=== PATIENT | male | born 1965 | race African-American/Black ===

== ENCOUNTER 2018-09-15 20:26 | Inpatient (IN) | payer MEDICAID ==
[~2018-09-15] VITALS: Ht 193 cm; Wt 103.4 kg
[2018-09-15 23:45] LABS: HEMATOCRIT. 29.5 % (42.0-52.0); HEMOGLOBIN. 9.1 g/dL (14.0-18.0); MEAN CORPUSCULAR HEMOGLOBIN 24.1 pg (28.0-32.0); MEAN CORPUSCULAR VOLUME 78.2 fL (80.0-94.0); MEAN PLATELET VOLUME 8.6 fl (7.4-10.4); PLATELET 142 x1000/uL (130-400); RED BLOOD CELL COUNT 3.77 mill/uL (4.7-6.1); RED CELL DISTRIBUTION WIDTH 18.5 % (11.6-14.6)
[2018-09-15 23:51] LABS: CHLORIDE 107 mEq/L (98-107)
[2018-09-16] MEDS ORDERED: ONDANSETRON HCL 4MG/2ML INJ IV ONE
[2018-09-16] MEDS ORDERED: ASPIRIN 325MG TABLET PO ONE
[2018-09-16] MEDS ORDERED: MORPHINE SULFATE 4 MG/ML CPJ (NOT FOR IM USE) IV ONE
[2018-09-16] MEDS ORDERED: FUROSEMIDE 40MG/4ML VIAL IVP ONE (01:00)
[2018-09-16] MEDS ORDERED: MAGNESIUM/ALUMINUM HYDROXIDE/SIMETHICONE 30ML UDC PO PRN (02:15)
[2018-09-16] MEDS ORDERED: GUAIFENESIN 200MG/10ML SUGAR FREE UDC PO PRN (02:15)
[2018-09-16] MEDS ORDERED: CLONIDINE 0.1MG TABLET PO PRN (02:15)
[2018-09-16] MEDS ORDERED: DOCUSATE SODIUM 100MG CAPSULE PO PRN (02:15)
[2018-09-16] MEDS ORDERED: ONDANSETRON HCL 4MG/2ML INJ IV PRN (02:15)
[2018-09-16] MEDS ORDERED: ACETAMINOPHEN 325MG TABLET PO PRN (02:15)
[2018-09-16] MEDS ORDERED: IPRATROPIUM/ALBUTEROL 0.5-3(2.5)MG/3ML NEB INH PRN (02:15)
[2018-09-16 02:59] LABS: NUCLEATED RED BLOOD CELLS 1 /100 WBC; PLATELET ESTIMATE NORMAL
[2018-09-16 04:00] VITALS: BP 115/84
[2018-09-16 04:15] VITALS: BP 115/84
[2018-09-16] MEDS ORDERED: DEXTROSE 50% WATER 50ML SYRINGE IV PRN (06:15)
[2018-09-16] MEDS: BLOOD SUGAR DIAGNOSTIC STRIP TEST SCH ×4 (07:01→20:48)
[2018-09-16] MEDS: INSULIN LISPRO 100 UNITS/ML SUBCUT SCH ×4 (07:02→21:00)
[2018-09-16] MEDS: ENOXAPARIN 40MG/0.4ML SYR SUBCUT SCH (07:17)
[2018-09-16 08:00] VITALS: BP 99/78
[2018-09-16] MEDS: LISINOPRIL 10MG TABLET PO SCH (08:50)
[2018-09-16] MEDS: AMLODIPINE 10MG TABLET PO SCH (08:50)
[2018-09-16] MEDS: FUROSEMIDE 40MG/4ML VIAL IV SCH (08:51)
[2018-09-16 09:38] LABS: CREATINE KINASE 29 IU/L (39-308)
[2018-09-16] MEDS: HYDROCODONE/ACETAMINOPHEN 5/325MG TABLET PO PRN ×3 (09:43→23:16)
[2018-09-16 12:00] VITALS: BP 116/79
[2018-09-16] MEDS ORDERED: GABA-531 MT (14:30)
[2018-09-16] MEDS ORDERED: ATOR-2 MT (14:30)
[2018-09-16] MEDS ORDERED: METO-396 MT (14:30)
[2018-09-16] MEDS ORDERED: ESOM40CA MT (14:30)
[2018-09-16] MEDS ORDERED: ASPI-1160 MT (14:30)
[2018-09-16] MEDS ORDERED: LISI2.5T47 MT (14:30)
[2018-09-16 16:18] VITALS: BP 114/76
[2018-09-16 18:05] LABS: CREATINE KINASE 29 IU/L (39-308)
[2018-09-16 18:14] LABS: T4 FREE 1.12 ng/dL (0.76-1.46)
[2018-09-16 19:09] LABS: CLARITY URINE CLEAR (CLEAR); COLOR URINE YELLOW (YELLOW); KETONES URINE NEGATIVE (NEGATIVE); LEUKOCYTE ESTERASE URINE NEGATIVE (NEGATIVE); NITRITE URINE NEGATIVE (NEGATIVE); OCCULT BLOOD URINE NEGATIVE (NEGATIVE); PH URINE 5.5 (4.5-8.0); PROTEIN URINE NEGATIVE (NEGATIVE); SPECIFIC GRAVITY URINE 1.016 (1.005-1.030)
[2018-09-16 19:21] LABS: *AMPHETAMINES SCREEN URINE NEGATIVE (NEGATIVE)
[2018-09-16 19:22] LABS: *BARBITURATES SCREEN URINE NEGATIVE (NEGATIVE); *BENZODIAZEPINES SCREEN URINE NEGATIVE (NEGATIVE); *COCAINE SCREEN URINE NEGATIVE (NEGATIVE); METHADONE URINE SCREEN NEGATIVE (NEGATIVE); OPIATES URINE SCREEN PRESUMTIVE POSITIVE (NEGATIVE); PHENCYCLIDINE URINE SCREEN NEGATIVE (NEGATIVE)
[2018-09-16 19:23] LABS: CANNABINOID URINE SCREEN PRESUMTIVE POSITIVE (NEGATIVE)
[2018-09-16 20:00] VITALS: BP_SYST 111; BP_SYST 160; BP_DIAS 78; BP_DIAS 84
[2018-09-16] MEDS: BUDESONIDE 0.5MG/2ML NEB HHN SCH (20:21)
[2018-09-16] MEDS: IPRATROPIUM/ALBUTEROL 0.5-3(2.5)MG/3ML NEB HHN SCH ×2 (20:21→23:59)
[2018-09-16] MEDS: LORATADINE 10MG TABLET PO SCH (20:47)
[2018-09-16] MEDS: FLUTICASONE PROPIONATE 50MCG/SPRAY BOTTLE BOTHNSTRLS SCH (20:48)
[2018-09-17] VITALS: BP 122/90
[2018-09-17 04:00] VITALS: BP 112/83
[2018-09-17] MEDS: IPRATROPIUM/ALBUTEROL 0.5-3(2.5)MG/3ML NEB HHN SCH ×3 (04:00→20:14)
[2018-09-17] MEDS: BLOOD SUGAR DIAGNOSTIC STRIP TEST SCH ×4 (06:09→21:01)
[2018-09-17] MEDS: ENOXAPARIN 40MG/0.4ML SYR SUBCUT SCH (06:11)
[2018-09-17] MEDS: INSULIN LISPRO 100 UNITS/ML SUBCUT SCH ×4 (06:20→21:00)
[2018-09-17 07:29] LABS: CHLORIDE 103 mEq/L (98-107)
[2018-09-17 07:41] LABS: HDL CHOLESTEROL 29 mg/dL (40-59)
[2018-09-17 07:44] LABS: LDL CHOLESTEROL 8 mg/dL (5-100)
[2018-09-17 07:45] LABS: CREATINE KINASE MB FRACTION < 1.0 ng/mL (0.5-3.6)
[2018-09-17 08:00] VITALS: BP 123/90
[2018-09-17] MEDS: LISINOPRIL 10MG TABLET PO SCH (08:44)
[2018-09-17] MEDS: AMLODIPINE 10MG TABLET PO SCH (08:44)
[2018-09-17] MEDS: FUROSEMIDE 40MG/4ML VIAL IV SCH (08:44)
[2018-09-17] MEDS: FLUTICASONE PROPIONATE 50MCG/SPRAY BOTTLE BOTHNSTRLS SCH ×2 (08:44→21:46)
[2018-09-17] MEDS: HYDROCODONE/ACETAMINOPHEN 5/325MG TABLET PO PRN ×2 (10:47→22:18)
[2018-09-17 12:00] VITALS: BP 123/93
[2018-09-17] MEDS: MEGESTROL ACETATE 400 MG/10 ML UDC PO SCH (15:07)
[2018-09-17] MEDS: BUDESONIDE 0.5MG/2ML NEB HHN SCH ×2 (15:55→20:13)
[2018-09-17 16:00] VITALS: BP 115/80
[2018-09-17 20:00] VITALS: BP 107/72
[2018-09-17] MEDS: CARVEDILOL 3.125 MG TABLET PO SCH (21:00)
[2018-09-17] MEDS: LORATADINE 10MG TABLET PO SCH (21:46)
[2018-09-18] VITALS: BP 110/74
[2018-09-18] MEDS: IPRATROPIUM/ALBUTEROL 0.5-3(2.5)MG/3ML NEB HHN SCH ×3 (00:53→07:32)
[2018-09-18 04:00] VITALS: BP 105/69
[2018-09-18] MEDS: INSULIN LISPRO 100 UNITS/ML SUBCUT SCH ×2 (06:18→11:41)
[2018-09-18] MEDS: BLOOD SUGAR DIAGNOSTIC STRIP TEST SCH ×2 (06:18→11:41)
[2018-09-18] MEDS: ENOXAPARIN 40MG/0.4ML SYR SUBCUT SCH (06:47)
[2018-09-18] MEDS: BUDESONIDE 0.5MG/2ML NEB HHN SCH (07:33)
[2018-09-18 08:00] VITALS: BP 112/76
[2018-09-18] MEDS: AMLODIPINE 10MG TABLET PO SCH (09:44)
[2018-09-18] MEDS: CARVEDILOL 3.125 MG TABLET PO SCH (09:44)
[2018-09-18] MEDS: FLUTICASONE PROPIONATE 50MCG/SPRAY BOTTLE BOTHNSTRLS SCH (09:44)
[2018-09-18] MEDS: LISINOPRIL 10MG TABLET PO SCH (09:44)
[2018-09-18] MEDS: FUROSEMIDE 40MG/4ML VIAL IV SCH (09:44)
[2018-09-18] MEDS: MEGESTROL ACETATE 400 MG/10 ML UDC PO SCH (09:45)
[2018-09-18 11:43] VITALS: BP 112/76
[2018-09-18 12:00] VITALS: BP 120/79
[2018-09-23] MEDS ORDERED: CLIN150C14 MT (18:10)
[2018-09-23] MEDS ORDERED: DOXY150T9 MT (18:10)
== END 2018-09-18 15:50 | disposition home or self-care (01) | DRG 133 ==
LOC: ER 20:26 → 5WST 09-16 00:36 → ENRESERV 09-16 03:06 → 5WST 09-16 05:07
PROVIDERS: ADMIT Hospitalist; ATTEND Hospitalist
PROC: 0JBN0ZZ Excision of Right Lower Leg Subcutaneous Tissue and Fascia, Open Approach (ICD-10-PCS; principal; 2018-09-16)
DX: J96.00 Acute respiratory failure, unspecified whether with hypoxia or hypercapnia (principal); I50.43 Acute on chronic combined systolic (congestive) and diastolic (congestive) heart failure; E46 Unspecified protein-calorie malnutrition; I42.0 Dilated cardiomyopathy; J44.9 Chronic obstructive pulmonary disease, unspecified; I73.9 Peripheral vascular disease, unspecified; D63.8 Anemia in other chronic diseases classified elsewhere; F12.90 Cannabis use, unspecified, uncomplicated; F17.200 Nicotine dependence, unspecified, uncomplicated; G62.9 Polyneuropathy, unspecified; I25.10 Atherosclerotic heart disease of native coronary artery without angina pectoris; J00 Acute nasopharyngitis [common cold]; L97.919 Non-pressure chronic ulcer of unspecified part of right lower leg with unspecified severity; S81.811A Laceration without foreign body, right lower leg, initial encounter; D72.819 Decreased white blood cell count, unspecified; R74.0 Nonspecific elevation of levels of transaminase and lactic acid dehydrogenase [LDH]; F10.10 Alcohol abuse, uncomplicated; Z56.0 Unemployment, unspecified; Z91.14 Patient's other noncompliance with medication regimen; Z82.49 Family history of ischemic heart disease and other diseases of the circulatory system; Z59.0 Homelessness; Z68.27 Body mass index [BMI] 27.0-27.9, adult; Z88.2 Allergy status to sulfonamides; Z88.1 Allergy status to other antibiotic agents; Z91.013 Allergy to seafood
CPT/HCPCS: 36415; 71045; 76604; 80061; 80305; 82550; 82553; 82962; 83036; 83880; 84134; 84439; 84443; 84484; 85379; 93005; 93306; 93923; 93970; 94640; 96374; 96375; 99285; J1650; J1940; J2270; J2405; J7620; J7626

== ENCOUNTER 2019-03-03 13:42 | Emergency (ER) | payer MEDICAID ==
[~2019-03-03] VITALS: Ht 188 cm; Wt 100.0 kg
[~2019-03-03 13:42] MED LIST: ASPI-1160 MT; ATOR-2 MT; CLIN150C14 MT; DOXY150T9 MT; ESOM40CA MT; GABA-531 MT; LISI2.5T47 MT; METO-396 MT
[2019-03-03 16:30] VITALS: BP 93/53
[2019-03-03 18:21] LABS: CLARITY URINE CLEAR (CLEAR); COLOR URINE YELLOW (YELLOW); KETONES URINE TRACE (NEGATIVE); LEUKOCYTE ESTERASE URINE NEGATIVE (NEGATIVE); NITRITE URINE NEGATIVE (NEGATIVE); OCCULT BLOOD URINE NEGATIVE (NEGATIVE); PROTEIN URINE 1+ (NEGATIVE); UROBILINOGEN URINE 0.2 E.U./dL (0.2-1.0)
[2019-03-03 18:39] LABS: *AMPHETAMINES SCREEN URINE NEGATIVE (NEGATIVE); *BARBITURATES SCREEN URINE NEGATIVE (NEGATIVE)
[2019-03-03 18:40] LABS: *BENZODIAZEPINES SCREEN URINE NEGATIVE (NEGATIVE); *COCAINE SCREEN URINE PRESUMTIVE POSITIVE (NEGATIVE); CANNABINOID URINE SCREEN PRESUMTIVE POSITIVE (NEGATIVE); METHADONE URINE SCREEN NEGATIVE (NEGATIVE); OPIATES URINE SCREEN PRESUMTIVE POSITIVE (NEGATIVE); PHENCYCLIDINE URINE SCREEN NEGATIVE (NEGATIVE)
== END 2019-03-03 16:49 | disposition left against medical advice (07) ==
LOC: ER 13:42
DX: R41.82 Altered mental status, unspecified (principal); R06.02 Shortness of breath; I50.9 Heart failure, unspecified; J44.9 Chronic obstructive pulmonary disease, unspecified; Z79.82 Long term (current) use of aspirin; Z79.899 Other long term (current) drug therapy; Z91.041 Radiographic dye allergy status; Z88.2 Allergy status to sulfonamides; Z91.013 Allergy to seafood
CPT/HCPCS: 80305; 81003; 99284